=== PATIENT | female | born 1975 | race Caucasian/White ===

== ENCOUNTER 2018-11-22 12:44 | Emergency (ER) | payer OTHER ==
[2016-06-04 13:21] VITALS: BP 148/92
[2018-12-07 17:36] LABS: eGFR (Non-African) > 60
[2018-12-07 17:37] LABS: BASOPHILS % 0.5 % (0.0-1.5); NEUTROPHILS # 3.3 # k/uL (1.4-7.7)
== END 2018-11-22 14:02 ==
LOC: ED 12:44
DX: A08.4 Viral intestinal infection, unspecified (principal)
CPT/HCPCS: 36415; 80053; 85025; 99282; 99283; S1016